=== PATIENT | female | born 1960 | race Caucasian/White ===

== ENCOUNTER 2020-12-06 13:54 | Observation (INO) | payer OTHER ==
[~2020-12-06] VITALS: Ht 152.4 cm; Wt 74.8 kg
[~2020-12-06 13:54] MED LIST: CITRATE OF MAG296 ML PO; CRESTOR20 MG PO; LORTAB 7.5-3251 EACH PO; NORCO 7.5-3251 EACH PO; ONDANSETRON HCL4 MG PO; ONDANSETRON ODT4 MG PO; PRILOSEC OTC20 MG PO; VENTOLIN HFA 66.7 GM INH; VITAMIN D400 UNI2 PO
[2020-12-06 15:59] LABS: HEMOGLOBIN 15.2 gm/dl (12.3-15.3); RED BLOOD COUNT 4.87 M/UL (4.00-5.10); WHITE BLOOD COUNT 7.5 K/UL (4.5-11.0)
[2020-12-06 16:27] LABS: BUN/CREATININE RATIO 11 (0-10)
[2020-12-07 02:54] LABS: HEMOGLOBIN 14.5 gm/dl (12.3-15.3); RED BLOOD COUNT 4.73 M/UL (4.00-5.10); WHITE BLOOD COUNT 6.5 K/UL (4.5-11.0)
[2020-12-07 03:22] LABS: BUN/CREATININE RATIO 9 (0-10)
[2020-12-07] MEDS ORDERED: IPRAT-ALBUT 0.5-3 ML INH (16:12)
[2020-12-08 06:04] LABS: HEMOGLOBIN 13.3 gm/dl (12.3-15.3); RED BLOOD COUNT 4.33 M/UL (4.00-5.10)
[2020-12-08 06:06] LABS: WHITE BLOOD COUNT 16.3 K/UL (4.5-11.0)
[2020-12-08 06:28] LABS: BUN/CREATININE RATIO 15 (0-10)
[2020-12-08] MEDS ORDERED: PREDNISONE 20 M20 MG PO (10:21)
[2020-12-08] MEDS ORDERED: ZYRTEC10 M3 PO (10:21)
[2020-12-08] MEDS ORDERED: CLEOCIN HCL300 MG PO (10:21)
[2020-12-08] MEDS ORDERED: VENTOLIN HFA 66.7 GM INH (10:21)
== END 2020-12-08 13:53 | disposition home or self-care (01) ==
LOC: ER1 13:54 → CDU 17:25 → MED SURG 4 19:39
PROVIDERS: Physician Assistant; Physician Assistant Medical; ADMIT Internal Medicine
DX: L03.113 Cellulitis of right upper limb (principal); L98.499 Non-pressure chronic ulcer of skin of other sites with unspecified severity; E78.5 Hyperlipidemia, unspecified; R73.03 Prediabetes; L29.9 Pruritus, unspecified; Z20.822 Contact with and (suspected) exposure to COVID-19; Z90.49 Acquired absence of other specified parts of digestive tract
CPT/HCPCS: 36415; 80048; 80053; 80202; 80307; 83605; 85025; 87040; 94640; 94664; 94760; 96374; 96375; 96376; 99284; G0378; J1200; J2920; J3370; J7070; U0002